=== PATIENT | female | born 1990 | race Caucasian/White ===

== ENCOUNTER 2017-06-25 16:32 | Emergency (ER) | payer MEDICAID, SELFPAY ==
[2017-06-25 16:33] VITALS: BP 131/88; PULSE 109; RESP 18; TEMP 37.4; O2SAT 98; BMI 37.5
[2017-06-25 16:53] LABS: Bacteria 0 SEEN /hpf (None Seen); Mucous, Urine 0 SEEN /hpf (<or=2+); White Blood Cells 0 SEEN /hpf (0-5)
[2017-06-25 17:00] LABS: Color, Urine Yellow (Yellow); Glucose, Dipstick Normal (Normal); Ketone-Dipstick Negative (Negative); Leukocyte Esterase-Dipstick Negative /ul (Negative); Nitrite-Dipstick Negative (Negative); Occult Blood-Urine Negative /ul (Negative); Protein-Dipstick Negative (Negative); Urine Bilirubin Dipstick Negative (Negative); Urine Clarity Clear (Clear); Urine Urobilinogen Normal (Normal)
[2017-06-25 17:19] LABS: Red Blood Cells-Urine 0-5 SEEN /hpf (0-5); Squamous Epithelial Cells - UA 0-5 SEEN /hpf (5-10)
[2017-06-25 18:32] VITALS: RESP 16
[2017-06-25 18:57] LABS: Absolute Lymphocyte Count 2.79 X10^3/ul (0.83-4.51); Basophil# 0.02 X10^3/uL; Basophil% 0.2 % (0-1); Hematocrit 43.5 % (37-47); Hemoglobin 14.7 g/dl (12.0-15.0); Lymphocyte # 2.79 X10^3/ul (4.0); Lymphocyte % 26.8 % (19-41); Mean Corp Hgb Conc 33.8 g/gl (32-36); Mean Corpuscular Hgb 30.8 pg (27.0-32.0); Mean Corpuscular Volume 91.2 fL (81-99); Mean Platelet Vol. 9.7 fl (6.2-12.0); Monocyte# 0.47 X10^3/uL; Monocyte% 4.5 % (0-10); Neutrophil # 7.02 X10^3/uL (2.7-7.7); Neutrophil % 67.4 % (47-70); Platelet Count 243 K/mm3 (150-450); RBC Distribution Width CV 12.6 % (11.6-14.6); RBC Distribution Width SD 42.5 fl (35.1-43.9); Red Blood Count 4.77 M/mm3 (4.2-5.4); White Blood Count 10.4 K/mm3 (4.4-11.0)
[2017-06-25 19:01] LABS: POSITIVE COUNT NO; POSITIVE DIFFERENTIAL NO; POSITIVE MORPHOLOGY NO
[2017-06-25 19:15] LABS: Anion Gap 9 (5-15); BUN 9 mg/dL (7-18); BUN/Creat Ratio 12.3 RATIO (10-20); Calcium,Total 8.9 mg/dL (8.5-10.1); Chloride 103 mmol/L (98-107); Creatinine, Serum 0.73 mg/dL (0.55-1.02); EST Glomerular Filtration Rate 101 mL/min (>60); Est Glom Filt Rate - Afr Amer 122 mL/min (>60); Estimated Creatinine Clearance 91.55 ml/min; Glucose 95 mg/dL (74-106); Potassium 3.9 mmol/L (3.5-5.1); Sodium Level 138 mmol/L (136-145)
--- NOTE | 2017-06-25 19:16 | CT_ITS ---
STUDY: CT ABDOMEN AND PELVIS WITHOUT CONTRAST REASON FOR EXAM: Female, 26 years old. Right flank pain RADIATION DOSAGE (If Supplied By Facility): CTDIvol = ( 23.16 ) mGy, DLP = ( 1168.71 ) mGycm TECHNIQUE: Transaxial images were obtained from the dome of the diaphragm to the symphysis pubis without oral contrast, and without intravenous contrast. Sagittal and coronal images were reconstructed. Individualized dose optimization techniques were used for this CT. COMPARISON: None. FINDINGS: There is minor atelectasis within the dependent portion of the left lung.. The visualized portions of the heart are within normal limits. Elongation of the right lobe of the liver most likely normal developmental variant.. No evidence for intrahepatic mass or bile duct dilatation. Normal gallbladder and extrahepatic biliary system. Normal spleen. Normal pancreas. Normal bilateral adrenal glands. Normal right kidney. Normal left kidney. Normal visualized stomach. Normal small intestine. Normal colon. The appendix is visualized and appears normal. Normal abdominal aorta. Normal inferior vena cava. Normal retroperitoneum. There is prominence of the uterus which is deviated towards right depressing the dome of the bladder which is incompletely distended. There is asymmetric prominence of the right adnexa. Normal abdominal wall. Lumbar spine demonstrates spondylosis. CT/Abdomen/Pelvis without Cont IMPRESSION: There is prominence of the uterus which is deviated towards the right as well as asymmetric prominence of the right adnexa which may be better assessed with pelvic sonogram. No evidence for hydronephrosis or ureteral calculus. No evidence for acute appendicitis. Electronically Signed: Chacorta Whitehead MD at 20:09 EST , Service support ,
[2017-06-25 19:29] LABS: Pregnancy, Serum, hCG Quali. NEGATIVE Negative (0-9 Nonpreg)
[2017-06-25] MEDS: Ketorolac 30 MG/ML Syringe IV (19:56)
[2017-06-25 20:07] VITALS: RESP 18
--- NOTE | 2017-06-25 21:05 | ED.VISSUMM ---
- ER Visit Summary Date of Service: 06/25/17 Chief Complaint: [Right flank pain] History of Present Illness: The patient is a 26 F [presents to the emergency department chief complaint right flank pain that started around 11 AM. Patient currently rates the pain a 4 5 out of 10 but was much more severe earlier today. Patient states that she has had nausea with it. Patient denies urinary symptoms. Patient's last menstrual period was 29 days ago and she thought maybe she was starting her period. Patient denies any fever. She denies any nausea or vomiting. Patient does not have a history of kidney stones.] She does have a history of PCO S. Physical Examination: [HEENT-PERRLA, EOMI. Cranial nerves II through XII grossly intact. TMs clear. Mucous membranes moist. No adenopathy. Cardiovascular-regular rate and rhythm without murmur or ectopy Lungs-clear to auscultation, chest wall stable without crepitus or subcu emphysema Abdomen-normoactive bowel sounds, soft, she has tenderness palpation over right lower quadrant and right pelvis. No masses palpated. There is no rebound, rigidity, or perineal signs. Patient has some mild tenderness to the right flank. Extremities-intact ?4, normal range of motion, normal pulses, atraumatic] Test Results: [CBC with differential was normal. Chemistries were normal. Urinalysis was normal. HCG was negative. CT flank showed some deviation of the uterus to the right with some prominence of the right adnexa which could be evaluated further with ultrasound at the recommendation of radiology.] Emergency Department Course and Treatment: [Patient initially was medicated with Toradol and currently her pain is resolved. Patient does not want to have the ultrasound this evening and would prefer to schedule it as an outpatient. I feel this is a reasonable option.] Treatment Plan: [Patient will be referred to IT PROGRAMMER ANALYST on-call for outpatient ultrasound.] Disposition: [Discharged to home in stable condition.] Patient advised to take ibuprofen for discomfort. Patient to return if worsening pain, fever, vomiting, or condition should worsen in any way. Impression: [Abdominal pain/flank pain-etiology uncertain.] This note was generated with Yododo dictation software. It may contain incorrect words, spelling, and punctuation that were not noted in review of the chart prior to signing ED Disposition - Plan for ED Patient: Chief Complaint: Flank Pain Referrals: Abner Irwin [Primary Care Provider] -
--- NOTE | 2017-06-25 21:08 | ED.DCSUM_ITS ---
- ER Visit Summary Date of Service: 06/25/17 Chief Complaint: [Right flank pain] History of Present Illness: The patient is a 26 F [presents to the emergency department chief complaint right flank pain that started around 11 AM. Patient currently rates the pain a 4 5 out of 10 but was much more severe earlier today. Patient states that she has had nausea with it. Patient denies urinary symptoms. Patient's last menstrual period was 29 days ago and she thought maybe she was starting her period. Patient denies any fever. She denies any nausea or vomiting. Patient does not have a history of kidney stones.] She does have a history of PCO S. Physical Examination: [HEENT-PERRLA, EOMI. Cranial nerves II through XII grossly intact. TMs clear. Mucous membranes moist. No adenopathy. Cardiovascular-regular rate and rhythm without murmur or ectopy Lungs-clear to auscultation, chest wall stable without crepitus or subcu emphysema Abdomen-normoactive bowel sounds, soft, she has tenderness palpation over right lower quadrant and right pelvis. No masses palpated. There is no rebound, rigidity, or perineal signs. Patient has some mild tenderness to the right flank. Extremities-intact ?4, normal range of motion, normal pulses, atraumatic] Test Results: [CBC with differential was normal. Chemistries were normal. Urinalysis was normal. HCG was negative. CT flank showed some deviation of the uterus to the right with some prominence of the right adnexa which could be evaluated further with ultrasound at the recommendation of radiology.] Emergency Department Course and Treatment: [Patient initially was medicated with Toradol and currently her pain is resolved. Patient does not want to have the ultrasound this evening and would prefer to schedule it as an outpatient. I feel this is a reasonable option.] Treatment Plan: [Patient will be referred to MEDICAL LAB TECHNICIAN on-call for outpatient ultrasound.] Disposition: [Discharged to home in stable condition.] Patient advised to take ibuprofen for discomfort. Patient to return if worsening pain, fever, vomiting , or condition should worsen in any way. Impression: [Abdominal pain/flank pain-etiology uncertain.] This note was generated with Verite[employer] dictation software. It may contain incorrect words, spelling, and punctuation that were not noted in review of the chart prior to signing ED Disposition - Plan for ED Patient: Chief Complaint: Flank Pain Referrals: Abner Irwin [Primary Care Provider] -
--- NOTE | 2017-06-25 21:08 | ED.DEP ---
ED Disposition - Plan for ED Patient: Chief Complaint: Flank Pain Instructions: ED Flank Pain Uncertain Cause Referrals: Abner Irwin [Primary Care Provider] - Dinh Page MD [STAFF PHYSICIAN] - 3-5 Days
[2017-06-25 21:17] VITALS: BP 123/91; PULSE 78; RESP 16; O2SAT 96
== END 2017-06-25 21:18 | disposition home or self-care (01) ==
PROVIDERS: Emergency Provider Emergency Medicine; Family Provider Nurse Practitioner Family; PCP Nurse Practitioner Family
DX: R10.31 Right lower quadrant pain (principal); R10.2 Pelvic and perineal pain; F12.90 Cannabis use, unspecified, uncomplicated; Z72.89 Other problems related to lifestyle; Z72.0 Tobacco use
CPT/HCPCS: 36415; 74176; 80048; 81001; 84703; 85025; 96374; 99285; A4216

== ENCOUNTER → 2018-08-12 15:59 | Outpatient (CLI) | payer MEDICAID, SELFPAY ==
[2018-08-12 12:17] VITALS: BMI 37.5
[2018-08-12 13:09] LABS: Absolute Lymphocyte Count 1.76 X10^3/ul (0.83-4.51); Basophil# 0.01 X10^3/uL; Basophil% 0.1 % (0-1); Differential Indicated SCAN CRITERIA MET; Eosinophil# 0.13 X10^3/uL; Eosinophils% 1.1 % (0-5); Hematocrit 35.6 % (37-47); Lymphocyte # 1.76 X10^3/ul (4.0); Lymphocyte % 15.2 % (19-41); Mean Corp Hgb Conc 33.7 g/gl (32-36); Mean Corpuscular Hgb 30.6 pg (27.0-32.0); Mean Corpuscular Volume 90.8 fL (81-99); Mean Platelet Vol. 9.8 fl (6.2-12.0); Monocyte# 0.58 X10^3/uL; Neutrophil # 9.04 X10^3/uL (2.7-7.7); Neutrophil % 78.2 % (47-70); POSITIVE COUNT NO; POSITIVE DIFFERENTIAL NO; POSITIVE MORPHOLOGY YES; Platelet Count 265 K/mm3 (150-450); RBC Distribution Width CV 12.8 % (11.6-14.6); RBC Distribution Width SD 42.1 fl (35.1-43.9); Red Blood Count 3.92 M/mm3 (4.2-5.4); White Blood Count 11.6 K/mm3 (4.4-11.0)
[2018-08-12 13:15] LABS: Glucose Challenge Gest 1H 50g 129 mg/dL (70-140)
--- NOTE | 2018-08-12 16:00 | US_ITS ---
STUDY: SECOND AND THIRD TRIMESTER OBSTETRICAL ULTRASOUND REASON FOR EXAM: Female, 27 years old. Evaluation of anatomy LMP: TECHNIQUE: Transabdominal probe TECHNICAL QUALITY: Adequate. PRIOR ULTRASOUND: None. FINDINGS: There is a single intrauterine fetus. The fetus is in a cephalic presentation. There is demonstrated cardiac activity with a heart rate of 143 bpm. There is a normal amniotic fluid volume. The largest amniotic fluid pocket measures 5.6 x 5.0 cm. The amniotic fluid index (SYLVIA) is 21.2 cm. The placenta is posterior and not low-lying There are Grade 1 placental changes. The cervix measures 3.8 in length. The bilateral adnexal regions are normal. BIOMETRY: BPD: 6.8 cm: 27 weeks, 3 days HC: 25.6 cm: 27 weeks, 6 days AC: 24.1 cm : 28 weeks, 3 days FL: 4.9 cm: 26 weeks, 5 days age by current US: 27 weeks, 5 days. LITTLE by current US: 11/06/2018. Estimated weight: 1110 grams, +/- 162 grams, 78 %. age by prior US: weeks, days. LITTLE by prior US: . Age by LMP: 26 weeks, 5 days. LITTLE by LMP: 11/13/2018. ANATOMY: Gender: Cranium: Normal lateral ventricles. Normal choroid plexus. Normal cerebellum. Normal cisterna magna. Normal face, nose and lips. Chest: Normal 4-chamber heart. Abdomen/Pelvis: Normal diaphragm. Normal stomach. Normal abdominal wall. Normal cord insertion. Normal 3 vessel cord. Mildly dilated (5 mm) bilateral renal pelves. These are the upper limits of normal Normal bladder. Spine: Normal cervical spine. Normal thoracic spine. Normal lumbar spine. Normal sacrum. Extremities: Normal bilateral upper extremities. Normal bilateral lower extremities. US/OB Anatomy Scan IMPRESSION: An ntrauterine at 27 weeks 5 days +/- 5 days with an expected date of delivery of 11/06/2018. There is an estimated weight of 11 10 g. This is in the 78th percentile. A normal anatomy is noted Electronically Signed: Kyle Covarrubias MD at 7:54 EDT Tel , Service support ,
== END ==
PROVIDERS: Referring Provider Nurse Practitioner Women's Health; Visit Provider Nurse Practitioner Women's Health
DX: Z34.80 Encounter for supervision of other normal pregnancy, unspecified trimester (principal)
CPT/HCPCS: 36415; 76805; 82950; 85025; 86850; 86900

== ENCOUNTER → 2018-08-26 16:43 | Outpatient (CLI) | payer MEDICAID, SELFPAY ==
[2018-08-26 14:14] VITALS: BMI 37.5
[2018-08-26 17:53] LABS: Amphetamine Urine VISTA NEGATIVE (<1000 ng/mL); Barbiturate Urine VISTA NEGATIVE (< 200 ng/mL); Benzodiazepine Urine VISTA NEGATIVE (< 200 ng/mL); Cocaine Urine VISTA NEGATIVE (< 300 ng/mL); Ecstacy Urine VISTA NEGATIVE (< 500 ng/mL); Methadone Urine VISTA NEGATIVE (< 300 ng/mL); PCP Urine VISTA NEGATIVE (< 25 ng/mL); THC Urine VISTA POSITIVE (< 50 ng/mL); Vista UDS pH Range 7
== END ==
PROVIDERS: Referring Provider Obstetrics & Gynecology; Visit Provider Obstetrics & Gynecology
DX: F12.90 Cannabis use, unspecified, uncomplicated (principal)
CPT/HCPCS: 80307

== ENCOUNTER → 2018-09-11 11:29 | Outpatient (CLI) | payer MEDICAID, SELFPAY ==
[2018-09-11 11:19] VITALS: BMI 37.5
[2018-09-11 12:43] LABS: T4 Free Direct 0.79 ng/dL (0.76-1.46); Thyroid Stim Hormone (TSH) 3.13 uIU/mL (0.358-3.74)
[2018-09-14 13:42] LABS: HEPATITIS B SURFACE AG Negative (Negative)
[2018-09-18 03:27] LABS: Rapid Plasmin Reagin (RPR) NONREACTIVE (NONREACTIVE)
== END ==
PROVIDERS: Visit Provider Obstetrics & Gynecology
DX: E03.9 Hypothyroidism, unspecified (principal); R30.0 Dysuria
CPT/HCPCS: 36415; 84439; 84443; 86592; 87086; 87340

== ENCOUNTER → 2018-10-07 15:03 | Outpatient (CLI) | payer MEDICAID, SELFPAY ==
[2018-10-07 14:19] VITALS: BMI 37.5
[2018-10-07 15:40] LABS: Amphetamine Urine VISTA NEGATIVE (<1000 ng/mL); Barbiturate Urine VISTA NEGATIVE (< 200 ng/mL); Benzodiazepine Urine VISTA NEGATIVE (< 200 ng/mL); Cocaine Urine VISTA NEGATIVE (< 300 ng/mL); Ecstacy Urine VISTA NEGATIVE (< 500 ng/mL); Methadone Urine VISTA NEGATIVE (< 300 ng/mL); PCP Urine VISTA NEGATIVE (< 25 ng/mL); THC Urine VISTA POSITIVE (< 50 ng/mL); Vista UDS pH Range 7
== END ==
PROVIDERS: Referring Provider Nurse Practitioner Women's Health; Visit Provider Nurse Practitioner Women's Health
DX: F12.90 Cannabis use, unspecified, uncomplicated (principal)
CPT/HCPCS: 80307

== ENCOUNTER → 2018-10-19 13:26 | Outpatient (CLI) | payer MEDICAID, SELFPAY ==
[2018-10-13 11:48] VITALS: BMI 37.5
--- NOTE | 2018-10-19 13:28 | US_ITS ---
STUDY: SECOND AND THIRD TRIMESTER OBSTETRICAL ULTRASOUND - LIMITED REASON FOR EXAM: Female, 27 years old. Routine survey. LMP: February 06, 2018. PRIOR ULTRASOUND: Comparison is made with prior study dated August 12, 2018. TECHNIQUE: Transabdominal TECHNICAL QUALITY: Adequate. FINDINGS: There is a single intrauterine fetus. The fetus is in a cephalic presentation. There is demonstrated cardiac activity with a heart rate of 143 bpm. There is a normal amniotic fluid volume. The largest amniotic fluid pocket measures 4.3 cm. The amniotic fluid index (SYLVIA) is 12.3 cm. The placenta is fundal in location. There are Grade 3 placental changes. The cervix measures 4.0 cm in length. BIOMETRY: BPD: 9.01 cm: 36 weeks, 4 days HC: 33.97 cm: 39 weeks, 1 days AC: 36.61 cm: 40 weeks, 4 days FL: 6.82 cm: 35 weeks, 1 days Age by LMP: 36 weeks, 3 days. LITTLE by LMP: November 13, 2018. age by prior US: 37 weeks, 3 days. LITTLE by prior US: November 06, 2018. age by current US: 37 weeks, 6 days. LITTLE by current US: November 03, 2018. Estimated weight: 3576 grams, +/- 522 grams, 96 percentile. Gender: Indeterminant US/OB Limited With Biometrics IMPRESSION: Single live intrauterine gestation with a mean gestational age of 37 weeks and 3 days. The measurements obtained today fall within the normal expected range. Electronically Signed: Gerard Johnson, at 14:48 EDT , Service support ,
== END ==
PROVIDERS: Referring Provider Obstetrics & Gynecology; Visit Provider Obstetrics & Gynecology
DX: Z34.80 Encounter for supervision of other normal pregnancy, unspecified trimester (principal)
CPT/HCPCS: 76816

== ENCOUNTER 2018-11-10 10:15 | Inpatient (IN) | payer MEDICAID, SELFPAY ==
[2018-09-11 11:19] VITALS: BMI 37.5
[2018-11-04 09:18] VITALS: BMI 37.5
[2018-11-10] VITALS (14 sets, daily range): BP systolic 94–120; BP diastolic 38–70; PULSE 77–89; RESP 15–18; TEMP 36.2–36.6; O2SAT 96–99; BMI 40.9
[2018-11-10] MEDS: Lactated Ringers 1,000 ML 999 ML IV (10:40)
[2018-11-10 10:58] LABS: Absolute Lymphocyte Count 1.64 X10^3/ul (0.83-4.51); Absolute Neutrophil Count 7.3 X10^3/uL (2.0-7.7); Basophil# 0.02 X10^3/uL; Basophil% 0.2 % (0-1); Eosinophil# 0.09 X10^3/uL; Eosinophils% 0.9 % (0-5); Hematocrit 35.5 % (37-47); Hemoglobin 11.8 g/dl (12.0-15.0); Lymphocyte # 1.64 X10^3/ul (4.0); Lymphocyte % 16.8 % (19-41); Mean Corp Hgb Conc 33.2 g/gl (32-36); Mean Corpuscular Hgb 29.1 pg (27.0-32.0); Mean Corpuscular Volume 87.4 fL (81-99); Mean Platelet Vol. 10.2 fl (6.2-12.0); Monocyte# 0.68 X10^3/uL; Monocyte% 6.9 % (0-10); Neutrophil # 7.33 X10^3/uL (2.7-7.7); Neutrophil % 74.9 % (47-70); POSITIVE COUNT NO; POSITIVE DIFFERENTIAL NO; POSITIVE MORPHOLOGY NO; Platelet Count 270 K/mm3 (150-450); RBC Distribution Width CV 13.1 % (11.6-14.6); RBC Distribution Width SD 40.4 fl (35.1-43.9); Red Blood Count 4.06 M/mm3 (4.2-5.4); White Blood Count 9.8 K/mm3 (4.4-11.0)
[2018-11-10 11:17] LABS: Amphetamine Urine VISTA NEGATIVE (<1000 ng/mL); Barbiturate Urine VISTA NEGATIVE (< 200 ng/mL); Benzodiazepine Urine VISTA NEGATIVE (< 200 ng/mL); Cocaine Urine VISTA NEGATIVE (< 300 ng/mL); Ecstacy Urine VISTA NEGATIVE (< 500 ng/mL); Methadone Urine VISTA NEGATIVE (< 300 ng/mL); PCP Urine VISTA NEGATIVE (< 25 ng/mL); THC Urine VISTA POSITIVE (< 50 ng/mL); Vista UDS pH Range 6
[2018-11-10] MEDS: Sodium Citrate/Citric Acid 30 ML UDC PO (11:49)
[2018-11-10] MEDS: Lactated Ringers 1,000 ML 150 ML IV (11:49)
[2018-11-10] MEDS: Cefazolin 2 GM in 0.9% Normal Saline 100 ML IV (12:29)
--- NOTE | 2018-11-10 12:33 | OP.PCM_ITS ---
Problem List (1) HPV (human papilloma virus) infection Status: Acute Comment: negative pap (2) History of Status: Acute Comment: Wants repeat c section (3) History of MRSA infection Status: Acute (4) Hypothyroid Status: Acute Qualifiers: Comment: no med; Normal 05/31/18 and 09/11/18 (5) Marijuana use Status: Acute Comment: positive tox screen 08/26/18- repeat in 4 weeks. (6) Positive GBS test Status: Acute Comment: 05/20/18 (7) Status: Acute Qualifiers: Comment: states had negative genetic testing in [place] (8) Supervision of other normal Status: Acute Comment: PRR LITTLE 11/17/18 PC Bishnu Benitez(question paternity) Delivery Classification: Scheduled Indications for : Repeat Elective Description of Procedure: The patient is a 27-year-old at 39 weeks presented for repeat . Spinal anesthesia was placed without difficulty. Leonard catheter was placed. The patient was placed in the dorsal supine position with leftward tilt. Patient was prepped and draped in the normal sterile fashion. Pfannenstiel skin incision was made with the scalpel and carried through to the underlying layer of fascia with the scalpel. Fascia was nicked in the midline and the incision extended laterally. The rectus bellies were dissected off superiorly and inferiorly with out complication both sharply and bluntly. The peritoneum was entered digitally. The incision was stretched and a low transverse uterine incision was made with the scalpel. The 's head was delivered atraumatically followed by the anterior and posterior shoulders without complication the rest of the infant delivered. The cord was clamped and cut and the infant was handed off to awaiting nurse. The placenta was delivered spontaneously immediately following and was noted to be intact and have a three- vessel cord. The uterus was exteriorized cleared of all clots and debris, and the incision was closed in a double layer closure using #1 Monocryl. The uterus was returned to the maternal abdomen and gutters were cleared of all clots and debris. The ovaries and fallopian tubes were noted to be within normal limits. The peritoneum was closed with 3-0 Monocryl in a running fashion. Fascia was closed with 0 PDS in a running fashion. Subcutaneous tissue was copiously irrigated and the skin was closed with 3-0 Monocryl in a subcuticular fashion. Steri-Strips and Mepilex dressing were applied without complication. Patient was taken to recovery in stable condition. Amniotic Membrane Rupture Type: Artificial Amniotic Fluid Description: Clear Placenta Disposition: [facility] Drain: Leonard to straight drain Cord Entanglement: None Cord Vessel Description: 3 Vessels Esitmated Blood Loss (ml): 800 Infant Gender: Male Delayed cord clamping: Yes Pre-op Antibiotic Given: Ancef 2 grams IV x1 Complications: None - Admit VTE Documentation VTE Present on Admission: No
--- NOTE | 2018-11-10 12:33 | PCM.HPOB.BLA ---
- Problem List (1) HPV (human papilloma virus) infection Status: Acute Comment: negative pap (2) History of Status: Acute Comment: Wants repeat c section (3) History of MRSA infection Status: Acute (4) Hypothyroid Status: Acute Qualifiers: Comment: no med; Normal 05/31/18 and 09/11/18 (5) Marijuana use Status: Acute Comment: positive tox screen 08/26/18- repeat in 4 weeks. (6) Positive GBS test Status: Acute Comment: 05/20/18 (7) Status: Acute Qualifiers: Comment: states had negative genetic testing in [place] (8) Supervision of other normal Status: Acute Comment: PRR LITTLE 11/17/18 PC Bishnu Benitez(question paternity) History and Physical Date of Admission: 11/10/18 Intake Vital Signs 11/04/18 Body Mass Index (BMI) 37.5 11/04/18 Height 5 ft 2 in 11/04/18 Weight: 229 lb 11/04/18 Body Mass Index (BMI) 41.8 11/04/18 Blood Pressure 94/70 Intake Visit Reasons: 39 WK OB Chief Complaint: est ob Oil And Gas Superintendent Required: No Is patient in pain?: No Allergies levothyroxine Adverse Reaction (Unknown, Verified 11/04/18 09:17) rash hydrocodone bitartrate [From Vicodin] Adverse Reaction (Verified 11/04/18 09:17) Nausea Medications vitamin,calcium,ijghrqqh-gbug-eppli acid tablet 1 tab PO DAILY 08/12/18 [History Confirmed 11/04/18] ranitidine 150 mg tablet 150 mg PO BID #60 tab 09/23/18 [Rx Confirmed 11/04/18] Last Menstral Period: 02/06/18 Zika: Zika virus screening: Negative : No PFSH PFSH Medical History Hypothyroid (Acute) Surgical History delivery delivered (Acute) Hernia (Acute) [place] teeth extracted (Acute) Family History Grandmother Diabetes Cancer Hypertension Grandfather Cancer Father Hypertension Aunt Asthma Depression Anxiety Social History (Updated 11/04/18 @ 09:28 by Shirley Rosen MD) number of children: 1 current occupational status: employed current occupation: [employer] Smoking Status: Current every day smoker alcohol intake: never substance use type: marijuana what type of physical activity do you participate in: none seatbelt use: always do you feel safe at home: Yes additional social history: JOSH Benitez Pregancy History 2 Elective abortions Hx Para 1 Spontaneous abortions Hx # Term Pregnancies 1 Ectopic pregnancies Hx # Pregnancies Multiple births # of living children 1 Past Pregnancies Del. Date Name GA/Weeks Outcome Route Bth Weight Infant Gen Labor Lgth Anesthesia Del Locatn Provider FOB 07/09/15 Blayze 40 live - full term 9 lbs 7 oz. Male 32 hours epidural [facility] Dr. Ayla Benitez HPI 39 WK OB: Details: JARED AMOS is a 27 year old who presents for routine OB visit. she is going to have a scheduled csection next week OB Visit LITTLE Calculator Estimated Delivery Date Method Current WG Current Estimate 11/13/18 LMP (Certain) 38w 5d Expected Delivery Route/Plan repeat c section. FTP at 9cm first Specific Issue/Plans flu vaccine: no tdap vaccine: given rhogam: na LARC form signed: kitty labor support person: Emmanuel pain management: c section cut cord/dad catch: [] : yes PP control planned: [] special requests: [] Initial Weight: Not Recorded Date EGA Weight BP Urine Prot Glucose FHR FuHt Pres Mov CTX Dilation Effaced St Visit Note 08/12/18 26w 5d 218 lb 2 oz 128/72 Negative Negative 161 26 Active absent No vb, LOF. 08/26/18 28w 5d 219 lb 132/54 Negative Negative 155 29 Active NO VB, LOF. Doing well 09/11/18 31w 0d 216 lb 112/68 Negative Negative 150 32 Active no vb lof good fm no regular ctx 09/23/18 32w 5d 220 lb 118/72 Trace Negative 140 34 Active no vb lof good fm no regular ctx 10/07/18 34w 5d 219 lb 120/62 Negative Negative 147 35 Active occasional nO Vb, LOF. Occa CTX 10/13/18 35w 4d 217 lb 124/72 Negative Negative 145 36 Active no vb lof good fm no regular ctx 10/20/18 36w 4d 222 lb 2 oz 106/60 Negative Negative 149 38 Cephalic Active occasional No VB, LOF, reg CTX. Good FM 10/27/18 37w 4d 223 lb 8 oz 122/58 Negative Negative 140 39 Cephalic Active no vb lof good fm n oregualr ctx 11/04/18 38w 5d 229 lb 94/70 Negative Negative 140 40 Cephalic Active no vb lof good fm no regualr ctx Visit Notes Visit Date: 11/04/18 ??no vb lof good fm no regualr ctx ??Shirley Rosen MD on 11/04/18 Visit Date: 10/27/18 ??no vb lof good fm n oregualr ctx ??Shirley Rosen MD on 10/27/18 Visit Date: 10/20/18 ??No VB, LOF, reg CTX. Good FM ??NAVID Jensen on 10/20/18 Visit Date: 10/13/18 ??no vb lof good fm no regular ctx ??Shirley Rosen MD on 10/13/18 Visit Date: 10/07/18 ??nO Vb, LOF. Occa CTX ??NAVID Jensen on 10/07/18 Visit Date: 09/23/18 ??no vb lof good fm no regular ctx ??Shirley Rosen MD on 09/23/18 Visit Date: 09/11/18 ??no vb lof good fm no regular ctx ??Shirley Rosen MD on 09/11/18 Visit Date: 08/26/18 ??NO VB, LOF. Doing well ??NAVID Jensen on 08/26/18 Visit Date: 08/12/18 ??No vb, LOF. ??NAVID Jensen on 08/12/18 ACOG First Trimester First Trimester: Desire for , Alcohol, Tobacco Cessation, Illicit/Recreational Drug/Substance Use, Intimate Partner Violence, Barriers to care, Unstable Housing, Communication Barriers, Environmental/Work Hazards, Anticipated Course of Care, Toxoplasmosis Precations, Use of Any medications, Sexual activity, Exercise, Dental Care, Sauna/Hot tub use, Seat Belt use, Childbirth classes/Hospital facilities, , Travel, Indications for US and Screening for Aneuploidy Second Trimester Second Trimester: Signs and Symptoms of Labor, Selecting a care provider, Reproductive Life Planning, Care Planning, Tobacco Cessation, Depression/Anxiety and Intimate Partner Violence Third Trimester Third Trimester: Pain Management Plans, Labor support person(s), Immediate Larc, Movement Monitoring and Infant Feeding Yes ; discussed Trial of Labor after Counseling or discussed Circumcision preference Diagnostics Diagnostics Labs Blood Type A POSITIVE 08/12/18 Antibody Screen NEGATIVE 08/12/18 Hct 35.6 % (37-47) L 08/12/18 Hgb 12.0 g/dl (12.0-15.0) 08/12/18 Obstetrics Ultrasound 10/19/18 RPR NONREACTIVE (NONREACTIVE) 09/11/18 Hep Bs Antigen Negative (Negative) 09/11/18 Glucose 1 Hr 50 gm 129 mg/dL (70-140) 08/12/18 Details: HIV: Urine Culture: Sequential Screen: NIPT Screen: ROS Const Denies fever(s) Resp Reports system reviewed and no additional complaints, except as docu GI Reports as per HPI, Denies abdominal pain Reports as per HPI, Denies abnormal vaginal bleeding, Denies vaginal discharge Musc Reports system reviewed and no additional complaints, except as docu Exam Const General: healthy appearing, comfortable, no acute distress HENMT Head: normal to inspection Nose: external nose normal Face and sinus: normal facial exam Neck Neck: normal visual inspection, full ROM, no lymphadenopathy Thyroid: thyroid normal Chest Chest palpation & inspection: normal inspection of the chest Resp Effort & Inspection: normal respiratory effort GI Inspection: normal to inspection Palpation: soft, nontender Extrem General: pedal edema Results [id number] Office Urine Glucose Negative Last Edit by Beth Galvan on 11/04/18 09:21 Office Urine Protein Negative Last Edit by Beth Galvan on 11/04/18 09:21 Assessment & Plan Problems 1. Positive GBS test B95.1 2. Marijuana use F12.90 3. HPV (human papilloma virus) infection B97.7 4. History of MRSA infection Z86.14 5. Acquired hypothyroidism E03.9 6. 38 weeks gestation of Z3A.38 7. History of Z98.891 8. Supervision of other normal Z34.80 Plan movement and labor precautions reviewed. ACOG trimester education reviewed and updated. see problem list details for updated plan management information and see below for orders placed at this visit. GA appropriate handout given. plan RLTCS Orders Orders: POC Urinalysis 2 Dip (Clinic) Today Coding Level of Care Code Off vis,est,level 3 Diagnoses Positive GBS test B95.1 Marijuana use F12.90 HPV (human papilloma virus) infection B97.7 History of MRSA infection Z86.14 Acquired hypothyroidism E03.9 ??Hypothyroidism type: acquired 38 weeks gestation of Z3A.38 ??Weeks of gestation: 38 weeks History of Z98.891 Supervision of other normal Z34.80 UPDATE- I have seen the patient and performed any clinically relevant updates to the history and physical exam. Shirley Rosen MD
[2018-11-10] MEDS: Oxytocin 30 units/NS 500 ml 30 UNITS/500 ML IV.SOLN 167 UNITS IV (12:47)
[2018-11-10] MEDS: Ketorolac 30 MG/ML Syringe IV (19:50)
[2018-11-10] MEDS: Lactated Ringers 1,000 ML 100 ML IV (22:50)
[2018-11-11] VITALS (11 sets, daily range): BP systolic 91–107; BP diastolic 45–69; PULSE 78–91; RESP 16–18; TEMP 36.4–36.8; O2SAT 95–100
[2018-11-11] MEDS: Enoxaparin 40 MG/0.4 ML Syringe SC ×2 (00:30→22:32)
[2018-11-11] MEDS: Ketorolac 15 MG/ML Vial 30 MG IV ×4 (02:54→20:48)
[2018-11-11 06:44] LABS: Hematocrit 30.2 % (37-47); Mean Corp Hgb Conc 33.1 g/gl (32-36); Mean Corpuscular Hgb 29.7 pg (27.0-32.0); Mean Corpuscular Volume 89.6 fL (81-99); Mean Platelet Vol. 10.3 fl (6.2-12.0); Platelet Count 214 K/mm3 (150-450); RBC Distribution Width CV 13.4 % (11.6-14.6); RBC Distribution Width SD 43.2 fl (35.1-43.9); Red Blood Count 3.37 M/mm3 (4.2-5.4); White Blood Count 8.9 K/mm3 (4.4-11.0)
[2018-11-11 07:13] LABS: Scan Indicated on CBC? Y/N NO
--- NOTE | 2018-11-11 07:40 | PN.OBGYN_ITS ---
Subjective: doing well no complaints pain controlled no CP SOB N V up to bedside this AM tolerating po lochia moderate, going well - Physical Exam General: Oriented x3 Abdomen: Soft, Non-Distended, - - Dressing dry and intact, minimal tenderness with exam. FF below U Vital Signs Temp Pulse Resp BP Pulse Ox 98.1 F 86 18 91/45 L 97 11/11/18 03:15 11/11/18 07:25 11/11/18 07:25 11/11/18 03:15 11/11/18 07:25 Oxygen Delivery Method Room Air Weight: 224 lb Body Mass Index (BMI) 40.9 Intake and Output for Last 24 Hours 11/09/18 11/10/18 11/11/18 23:59 23:59 23:59 Intake Total 2136 / 2136 2364 / 2364 Output Total 200 / 200 1075 / 1075 Balance 1935 / 1935 1289 / 1289 Laboratory Tests Past 24 Hrs 11/10/18 11/10/18 11/10/18 10:30 10:30 10:30 WBC 9.8 RBC 4.06 L Hgb 11.8 L Hct 35.5 L MCV 87.4 MCH 29.1 MCHC 33.2 RDW 13.1 RDW Differential 40.4 Plt Count 270 MPV 10.2 Immature Gran % (Auto) 0.300 Neut % (Auto) 74.9 H Lymph % (Auto) 16.8 L [place] % (Auto) 6.9 Eos % (Auto) 0.9 Baso % (Auto) 0.2 Absolute Neuts (auto) 7.3 Absolute Lymphs (auto) 1.64 Total Counted Not Reportable Urine Opiates Screen NEGATIVE Urine Methadone Screen NEGATIVE Ur Barbiturates Screen NEGATIVE Ur Phencyclidine Scrn NEGATIVE Ur Amphetamines Screen NEGATIVE U Methamphetamin-MDMA NEGATIVE U Benzodiazepines Scrn NEGATIVE Urine Cocaine Screen NEGATIVE U Cannabinoids Screen POSITIVE H Ur Drug Screen Comment Blood Type A POSITIVE Antibody Screen NEGATIVE 11/11/18 06:15 WBC 8.9 RBC 3.37 L Hgb 10.0 L Hct 30.2 L MCV 89.6 MCH 29.7 MCHC 33.1 RDW 13.4 RDW Differential 43.2 Plt Count 214 MPV 10.3 Immature Gran % (Auto) Neut % (Auto) Lymph % (Auto) [place] % (Auto) Eos % (Auto) Baso % (Auto) Absolute Neuts (auto) Absolute Lymphs (auto) Total Counted Urine Opiates Screen Urine Methadone Screen Ur Barbiturates Screen Ur Phencyclidine Scrn Ur Amphetamines Screen U Methamphetamin-MDMA U Benzodiazepines Scrn Urine Cocaine Screen U Cannabinoids Screen Ur Drug Screen Comment Blood Type Antibody Screen Medical Necessity - Tobacco Use Smoking Status: Current every day smoker Assessment/Plan All Active Problems (Last Reviewed 11/04/18 @ 09:17 by Beth Galvan) Positive GBS test (Acute) Marijuana use (Acute) HPV (human papilloma virus) infection (Acute) History of MRSA infection (Acute) Hypothyroid (Acute) (Acute) History of (Acute) Supervision of other normal (Acute) s/p LTCS PPD # 1 1. routine post care 2. breast feeding- support given 3. rh positive 4. rubella immune
[2018-11-11] MEDS: 0.9% Saline Lock 10 ML Syringe IV ×3 (09:09→20:48)
--- NOTE | 2018-11-11 15:45 | CASEMGMT ---
ocial Work Labor and Delivery Social work notified by RN Michelle Romano on 11.10.2018 for maternal history of marijuana use in and positive toxicology at time of deliveyr. Chart has been reviewed. Plan: Will see patient tomorrow, 11.12.2018, for assessment and determination of resource needs. -ELLIS Burkett, LOAN OFFICER
[2018-11-11] MEDS: oxyCODONE 5 MG Tablet PO (20:03)
[2018-11-11] MEDS: Senna/Docusate Sodium 1 Tablet PO (22:31)
[2018-11-12] MEDS: Acetaminophen 500 MG Tablet 1000 MG PO (01:48)
[2018-11-12 01:49] VITALS: BP 96/52; PULSE 89; RESP 18; TEMP 36.9; O2SAT 97
[2018-11-12] MEDS: Naproxen 250 MG Tablet PO ×2 (03:32→16:14)
[2018-11-12] MEDS: oxyCODONE 5 MG Tablet PO (06:34)
--- NOTE | 2018-11-12 07:18 | PCM.PN.OB ---
Subjective: doing well no complaints pain controlled no CP SOB N V ambulating well tolerating po lochia moderate - Physical Exam General: Alert, Oriented x3 Vital Signs Temp Pulse Resp BP Pulse Ox 98.4 F 89 18 96/52 L 97 11/12/18 01:49 11/12/18 01:49 11/12/18 01:49 11/12/18 01:49 11/12/18 01:49 Oxygen Delivery Method Room Air Weight: 224 lb Body Mass Index (BMI) 40.9 Intake and Output for Last 24 Hours 11/10/18 11/11/18 11/12/18 23:59 23:59 23:59 Intake Total 2136 / 2136 2659 / 2659 Output Total 200 / 200 1800 / 1800 Balance 1936 / 193 859 / 859 Medical Necessity - Tobacco Use Smoking Status: Current every day smoker Assessment/Plan All Active Problems (Last Reviewed 11/04/18 @ 09:17 by Beth Galvan) Positive GBS test (Acute) Marijuana use (Acute) HPV (human papilloma virus) infection (Acute) History of MRSA infection (Acute) Hypothyroid (Acute) (Acute) History of (Acute) Supervision of other normal (Acute) s/p LTCS PPD # 2 1. routine post care 2. ambulate, oral pain control 3. rh positive 4. rubella immune
--- NOTE | 2018-11-12 07:19 | DCINST_ITS ---
Discharge Diet: No Restrictions Discharge Activity: May Not Drive - for 2 weeks, May not drive while taking narcotic pain medications., May Shower, May Take a Tub Bath - in 7 days May resume sexual activity in: 4-6 weeks Lifting Restrictions: 20 pounds Additional Activity Instructions:: Nothing in the vagina for 4-6 weeks. You may return to work/school in 6 weeks. Call your doctor if your incision/area has: Continuous Slow Oozing, Sudden Increased Bleeding, Increased Pain/ Swelling, Increased Redness, Foul Smelling Discharge Call your doctor if you observe: Fever of 101 or Higher, Using more than one pad per hour - for 2 hours Suture Line Care: Avoid Pulling/Pushing, Avoid Pinching/Bending Cleanse incision/area with: Keep Dressing Clean & Dry Additional Instructions: If you experience any of the following, contact your healthcare provider. * Bleeding that soaks a pad every hour for 2 hours * Fever 100.4 or higher * Unrelieved incision or abdominal pain * Swelling, redness, discharge or bleeding from your incision or episiotomy site * Your incision begins to separate * Problems urinating (including inability to urinate or burning while urinating). * Visual changes * Severe headache * Flu-like symptoms * Pain or redness in one of both of your breasts * Pain, warmth, tenderness or swelling in your legs, especially the calf area * Frequent nausea and vomiting * Symptoms of depression or anxiety If you experience any of the following, call 911 or go to the nearest Emergency Room. * Chest pain * Problems breathing * Seizure activity * Partial or complete paralysis of a body part, slurred speech, weakness or drooping of the face, or a sudden inability to walk or hold your balance Allergies/Adverse Reactions: Allergies levothyroxine Adverse Reaction (Unknown, Verified 11/10/18 11:38) rash hydrocodone bitartrate [From Vicodin] Adverse Reaction (Verified 11/10/18 11:38) Nausea Medications to take at Discharge vitamin,calcium,[id number] acid tablet 1 tab PO DAILY 08/12/18 Ranitidine HCl [Acid Center Line Cutter Operator] 150 mg PO BID 11/10/18 Naproxen [Naprosyn] 250 - 500 mg PO Q8H PRN PRN #30 tab 11/11/18 Oxycodone HCl/Acetaminophen [Percocet 5-325] 1 - 2 tab PO Q4H PRN PRN 7 Days #15 tab 11/11/18 The following prescriptions were given: Naproxen [Naprosyn] 250 - 500 mg PO Q8H PRN PRN #30 tab PRN Reason: MILD PAIN Transmission Status: Received by [facility] Oxycodone HCl/Acetaminophen [Percocet 5-325] 1 - 2 tab PO Q4H PRN PRN 7 Days #15 tab PRN Reason: Pain Transmission Status: Received by [facility] Follow-Up: Call to make an appointment with your doctor for an incision check in 1-2 weeks. You will also need a 6 week post- follow up appointment. Test results from this visit will be discussed in further detail at your follow- up appointment, if applicable. Please Follow Up With: Shirley Rosen MD - Call to make an appointment for an incision check in 1-2 [phone] When: You will need a post- check in 6 weeks. Primary Care Physician: Care Physician,No Primary [Primary Care Provider] -
[2018-11-12 08:48] VITALS: BP 97/50; PULSE 86; RESP 16; TEMP 36.5; O2SAT 96
[2018-11-12] MEDS: Enoxaparin 40 MG/0.4 ML Syringe SC (10:00)
[2018-11-12 12:00] VITALS: BP 101/59; PULSE 83; RESP 16; TEMP 36.6; O2SAT 97
[2018-11-12 16:00] VITALS: BP 109/60; PULSE 98; RESP 16; O2SAT 99
[2018-11-12 16:19] VITALS: BP 109/60; PULSE 99; RESP 16; TEMP 36.7; O2SAT 98
--- NOTE | 2018-11-12 17:57 | NURSING ---
mariah page into see the pt today. pt upset throughout this shift, due to exboyfriend/ not supportive. 1:1 emotional support given to the pt.
--- NOTE | 2018-11-16 18:14 | NURSING ---
No answer on follow up phone call , message left.
== END 2018-11-12 16:45 | disposition home or self-care (01) | DRG 560 ==
PROVIDERS: Admitting Provider Obstetrics & Gynecology; Referring Provider Obstetrics & Gynecology; Visit Provider Obstetrics & Gynecology
PROC: 10E0XZZ Delivery of Products of Conception, External Approach (ICD-10-PCS; CPT 59514; principal; 2018-11-10 11:45)
DX: O34.211 Maternal care for low transverse scar from previous cesarean delivery (principal); O99.824 Streptococcus B carrier state complicating childbirth; O98.32 Other infections with a predominantly sexual mode of transmission complicating childbirth; A63.0 Anogenital (venereal) warts; B97.7 Papillomavirus as the cause of diseases classified elsewhere; O99.284 Endocrine, nutritional and metabolic diseases complicating childbirth; E03.9 Hypothyroidism, unspecified; O99.344 Other mental disorders complicating childbirth; F32.9 Major depressive disorder, single episode, unspecified; F41.9 Anxiety disorder, unspecified; J45.909 Unspecified asthma, uncomplicated; O99.334 Smoking (tobacco) complicating childbirth; F17.200 Nicotine dependence, unspecified, uncomplicated; Z86.14 Personal history of Methicillin resistant Staphylococcus aureus infection; Z3A.39 39 weeks gestation of pregnancy; Z37.0 Single live birth
CPT/HCPCS: 80307; 85025; 85027; 86850; 86900; 99218; J7120; A4216; G0378; J2405

== ENCOUNTER 2018-12-09 23:01 | Emergency (ER) | payer MEDICAID, SELFPAY ==
[2018-11-24 16:59] VITALS: BMI 40.9
[2018-12-09 23:03] VITALS: BP 151/73; PULSE 90; RESP 18; TEMP 36.7; O2SAT 96; BMI 36.3
--- NOTE | 2018-12-09 23:38 | ED.DCSUM_ITS ---
- ER Visit Summary Date of Service: 12/09/18 Chief Complaint: Rash History of Present Illness: The patient is a 28 F with a rash behind her left knee after camping. She is concerned might be poison haritha. It is itchy. She has no other associated symptoms. Physical Examination: Patient has small red vesicles behind her left knee. Otherwise exam unremarkable. Test Results: None indicated Emergency Department Course and Treatment: Rash could be concerning for poison haritha but also some other contact dermatitis. There are no concerning features. The patient is breast-feeding. She was concerned that although she washed the area, she did touch it and her breast and fed her , 4-week-old baby. She was concerned that the baby could be exposed. I advised that there is a small chance that the oil could be passed to her baby, but this is unlikely. She has a very mild rash and she did wash the area. There was no direct contact. The baby is doing well and eating normally. I advised her to seek medical care if her baby has any trouble breathing, eating, or appears to be uncomfortable or acting abnormally. She does not want to be on prednisone if it can be passed in the breast milk. She will be using topical medicine, calamine, soaks. Follow- up with primary care. Treatment Plan: As above Disposition: Discharge Impression: Poison haritha rash This note was generated with [employer] dictation software. It may contain incorrect words, spelling, and punctuation that were not noted in review of the chart prior to signing ED Disposition - Plan for ED Patient: Instructions: Poison Haritha Dermatitis Additional Instructions: Follow up with your doctor as needed
[2018-12-09 23:53] VITALS: RESP 18
== END 2018-12-09 23:53 | disposition home or self-care (01) ==
LOC: ED 23:49
PROVIDERS: Emergency Provider Emergency Medicine
DX: L23.7 Allergic contact dermatitis due to plants, except food (principal)
CPT/HCPCS: 99282

== ENCOUNTER 2024-06-18 22:55 | Emergency (ER) | payer MEDICAID, SELFPAY ==
[2024-06-18 22:58] VITALS: BP 155/120; PULSE 114; RESP 22; TEMP 36.6; O2SAT 95; BMI 32.3
[2024-06-18] MEDS: Acetaminophen 500 MG Tablet 1000 MG PO (23:19)
[2024-06-18 23:42] LABS: Alcohol, Blood (Medical)-Serum < 3.0 mg/dL
[2024-06-18 23:44] LABS: Anion Gap 5 (5-15); BUN 11 mg/dL (7-18); BUN/Creat Ratio 14.9 RATIO (10-20); Calcium,Total 9.4 mg/dL (8.5-10.1); Chloride 102 mmol/L (98-107); Creatinine, Serum 0.74 mg/dL (0.55-1.02); EST Glomerular Filtration Rate 95 mL/min (>60); Est Glom Filt Rate - Afr Amer 115 mL/min (>60); Glucose 113 mg/dL (74-106); Potassium 3.5 mmol/L (3.5-5.1); Sodium Level 136 mmol/L (136-145)
[2024-06-18 23:58] VITALS: BP 105/65; PULSE 91; RESP 18; O2SAT 99
[2024-06-19] VITALS: RESP 16
[2024-06-19 00:05] LABS: Internal QC Validated? YES +Cl - CLEAR BKGD; Pregnancy, Urine Negative Negative
[2024-06-19 00:20] LABS: Absolute Lymphocyte Count 3.35 X10^3/uL (0.83-4.51); Absolute Neutrophil Count 5.9 X10^3/uL (2.0-7.7); Basophil# 0.04 X10^3/uL; Basophil% 0.4 % (0-1); Eosinophil# 0.28 X10^3/uL; Eosinophils% 2.8 % (0-5); Hemoglobin 15.1 g/dL (12.0-15.0); Lymphocyte # 3.35 X10^3/ul (0.83-4.51); Lymphocyte % 33.2 % (19-41); Mean Corp Hgb Conc 33.6 g/dL (32-36); Mean Corpuscular Hgb 28.5 pg (27.0-32.0); Mean Corpuscular Volume 85.1 fL (81-99); Monocyte# 0.45 X10^3/uL; Monocyte% 4.5 % (0-10); NRBC Flagged by Analyzer 0 % (0-5); Neutrophil % 58.5 % (47-70); Platelet Count 345 K/mm3 (150-450); RBC Distribution Width CV 12.3 % (11.6-14.6); RBC Distribution Width SD 37.7 fl (35.1-43.9); Red Blood Count 5.29 M/mm3 (4.2-5.4); White Blood Count 10.1 K/mm3 (4.4-11.0)
[2024-06-19 00:48] LABS: Amphetamine Urine POSITIVE (<1000 ng/mL); Barbiturate Urine VISTA NEGATIVE (< 200 ng/mL); Benzodiazepine Urine VISTA NEGATIVE (< 200 ng/mL); Cocaine Urine VISTA NEGATIVE (< 300 ng/mL); Ecstacy Urine VISTA POSITIVE (< 500 ng/mL); Methadone Urine VISTA NEGATIVE (< 300 ng/mL); Opiates Urine NEGATIVE (< 300 ng/mL); PCP Urine NEGATIVE (< 25 ng/mL); THC Urine VISTA POSITIVE (< 50 ng/mL); Vista UDS pH Range 5
--- NOTE | 2024-06-19 01:18 | EX.ED.DYSGE1 ---
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 She states that her boyfriend and kids were recently taken from her which increased her stress and depression. Today she was emotional and crying and made a comment to her father that because of her situation she might as well just shoot herself. Because of this reported suicidal threat the police were called and she was brought to the hospital for evaluation. The patient does admit to saying this but reports it was done out of frustration and anger and that she does not have true thoughts of self-harm does not even have access to firearms [facility] Medical History (Updated 06/19/24 @ 03:[address] Damion Vila DO) Hypothyroid Home Medications ?Medication ?Instructions ?Recorded ?Last Taken ?Type trazodone 100 mg tablet 100 mg PO QHS PRN insomnia #30 tabs 06/19/24 Unknown Rx Allergy/AdvReac Type Severity Reaction Status Date / Time levothyroxine AdvReac Unknown rash Verified 06/18/24 22:58 hydrocodone bitartrate (From AdvReac Nausea Verified 06/18/24 22:58 Vicodin) Family History Grandmother Diabetes Cancer Hypertension Grandfather Cancer Father Hypertension Aunt Asthma Depression Anxiety Surgical History Hernia [place] teeth extracted delivery delivered Social History (Updated 12/22/18 @ 15:[address] Shirley Rosen MD) number of children: 1 current occupational status: employed current occupation: [employer] Smoking Status: Never smoker alcohol intake: never substance use type: marijuana what type of physical activity do you participate in: none seatbelt use: always do you feel safe at home: Yes additional social history: JOSH YBARRA ED Constitutional Constitutional ED: Denies chills or fever(s) ENT ENT ED: Denies sore throat Cardiovascular Cardiovascular: Denies chest pain Respiratory/Chest Respiratory/Chest: Denies cough or dyspnea Gastrointestinal Gastrointestinal: Denies abdominal pain, diarrhea, nausea or vomiting Genitourinary Genitourinary ED: Denies dysuria Musculoskeletal Musculoskeletal: Denies myalgias Integumentary Denies rash Neurologic Neurologic: Denies headache(s) Psychiatric Psychiatric: Reports depression; Denies suicidal ideation or suicidal thoughts Hematologic/Lymphatic Hematologic/Lymphatic: Denies easy bleeding or easy bruising EXAM Physical Exam Const Vital Signs: 06/18/24 22:58 06/18/24 23:58 06/18/24 23:58 Temperature 98 F Temperature Source Temporal Pulse Rate 114 H 91 Respiratory Rate 22 H 18 18 Blood Pressure 155/120 H 105/65 Blood Pressure Mean 131 78 Pulse Ox 95 99 Oxygen Delivery Method Room Air Room Air 06/19/24 00:00 06/19/24 01:57 Temperature 98.2 F Temperature Source Pulse Rate 95 Respiratory Rate 16 18 Blood Pressure 130/76 H Blood Pressure Mean 94 Pulse Ox 97 Oxygen Delivery Method Positive well nourished and well developed General Appearance ED: well developed; Negative for pallor HEENT HEENT Narrative: Normocephalic atraumatic Eyes PERRL and EOMs intact bilaterally General Eye ED: Negative for scleral icterus Neck supple Neck Narrative: No nuchal rigidity or meningeal signs Resp normal respiratory effort and clear to auscultation bilaterally Cardio regular rate and regular rhythm GI normal to inspection, nondistended, normoactive bowel sounds, non-tender, non-distended and no masses Auscultation: normoactive bowel sounds Palpation: soft Extremity normal to inspection Neuro oriented x3, CN's II-XII intact bilaterally and no sensory deficits noted Sensorium / Orientation: alert Motor Exam: strength 5/5 throughout Psych Psych Narrative: Tearful/depressed affect without reported homicidal or suicidal ideation Mood & Affect: depressed and tearful Skin no rashes or lesions noted General Skin Exam: Negative for jaundice or pallor MDM MDM MDM Narrative Medical decision making narrative: Patient presented to the ER in no acute distress. She reported longstanding untreated depression that recently is worsened based on the situational factors in her life. She does admit to stating she wanted to harm herself but reports it was done out of frustration and anger and that she does not have true thoughts of suicide. The patient denies any previous suicide attempt or psychiatric admission and overall she is low risk for attempting to harm self. However as she did state this in front of family I did elect to perform a basic medical exam and have psychiatry/crisis center evaluated her in the ER. Medical workup revealed no acute findings and after she was medically cleared psychiatry evaluated the patient. They agree that she would benefit from treatment but that she is low risk for self-harm and therefore does not need inpatient placement. Therefore the patient be discharged home and strongly advised to follow-up as an outpatient secondary to her worsening depression History & Record Review Discussion w/independent historian: Patient Lab Data Attestation: I reviewed the patient's lab results. Labs: Laboratory Results - last 24 hr 06/18/24 06/18/24 23:15 23:50 WBC 10.1 RBC 5.29 Hgb 15.1 H Hct 45.0 MCV 85.1 MCH 28.5 MCHC 33.6 RDW Std Deviation 37.7 RDW Coeff of Olivia 12.3 Plt Count 345 MPV 10.0 Immature Gran % (Auto) 0.600 Neut % (Auto) 58.5 Lymph % (Auto) 33.2 [place] % (Auto) 4.5 Eos % (Auto) 2.8 Baso % (Auto) 0.4 Absolute Neuts (auto) 5.9 Absolute Lymphs (auto) 3.35 Nucleated RBC % 0 Sodium 136 Potassium 3.5 Chloride 102 Carbon Dioxide 29.0 Anion Gap 5 BUN 11 Creatinine 0.74 Estim Creat Clear Calc 113.40 Est GFR (MDRD) Af Amer 115 Est GFR (MDRD) Non-Af 95 BUN/Creatinine Ratio 14.9 Glucose 113 H Calcium 9.4 Urine Test Negative Urine Opiates Screen NEGATIVE Urine Methadone Screen NEGATIVE Ur Barbiturates Screen NEGATIVE Ur Phencyclidine Scrn NEGATIVE Ur Amphetamines Screen POSITIVE H MDMA (Ecstasy) Screen POSITIVE H U Benzodiazepines Scrn NEGATIVE Urine Cocaine Screen NEGATIVE U Cannabinoids Screen POSITIVE H Ur Drug Screen Comment Ethyl Alcohol < 3.0 Management Discussion w/another healthcare provider: Behavioral health Discharge Plan Triage Chief Complaint: Suicidal ED Provider: Damion Vila Dx/Rx/DC Orders Clinical Impression: Depression, Hypothyroid, Marijuana use Instructions: Depression: Tips to Help Yourself, CONTRACT, No Harm Prescriptions: New trazodone 100 mg tablet 100 mg PO QHS PRN (Reason: insomnia) Qty: 30 0RF Primary Care Provider: Care Physician,No Primary Referrals: Care Physician,No Primary [Primary Care Provider] - Activity Restrictions/Additional Instructions: Please follow-up with psychiatry as directed in the ER and try using the trazodone nightly to help with insomnia. Return to the hospital should you have any further concerns Print Language: Kyrgyz Disposition Disposition: Home, Self Care Discharge Date/Time: 06/19/24 02:19
[2024-06-19] MEDS: traZODone 100 MG Tablet PO (01:56)
[2024-06-19 01:57] VITALS: BP 130/76; PULSE 95; RESP 18; TEMP 36.8; O2SAT 97
== END 2024-06-19 02:19 | disposition home or self-care (01) ==
PROVIDERS: Emergency Provider Emergency Medicine; Visit Provider Emergency Medicine
DX: E03.9 Hypothyroidism, unspecified (principal); F32.A Depression, unspecified; F12.90 Cannabis use, unspecified, uncomplicated
CPT/HCPCS: 36415; 80048; 80307; 81025; 82077; 85025; 99285